=== PATIENT | male | born 1935 | race Caucasian/White ===

== ENCOUNTER 2019-08-02 14:01 | Emergency (ER) | payer MEDICARE, OTHER ==
--- NOTE | 2019-08-02 14:42 | EDM.PDOC ---
ED HPI GENERAL MEDICAL PROBLEM - General Chief Complaint: Fever Stated Complaint: FEVER AND BODY ACHES Time Seen by Provider: 08/02/19 14:41 - History of Present Illness INITIAL COMMENTS - FREE TEXT/NARRATIVE: 84-year-old male presents the emergency room not feeling well. This morning he did not feel well when he got up pretty much achy all over his temperature is been up a little bit to 99 4 but has not had a fever. He has not taken any Tylenol or ibuprofen yet. Patient denies any chest pain or breathing difficulties he does not have a cough. He does not have any abdominal pain no nausea vomiting constipation or diarrhea. He has no burning or frequency with urination. No upper airway congestion sore throat or sinus pressure. He just does not feel very well Generalized Pain Score (Numeric/FACES): 6 - Related Data Allergies Allergy/AdvReac Type Severity Reaction Status Date / Time No Known Allergies Allergy Verified 08/02/19 14:20 Home Meds: Home Meds Aspirin [Halfprin] 81 mg PO DAILY 10/03/14 [History] Cholecalciferol (Vitamin D3) [Vitamin D3] 1,000 unit PO DAILY 10/03/14 [History] Cyanocobalamin (Vitamin B12) [Vitamin B12] 1,000 mcg PO DAILY 10/03/14 [History] Furosemide [Lasix] 20 mg PO DAILY 10/03/14 [History] Losartan Potassium [Cozaar] 100 mg PO DAILY 10/03/14 [History] Pravastatin Sodium [Pravastatin (Pravachol)] 40 mg PO DAILY 10/03/14 [History] metFORMIN [Glucophage] 500 mg PO BIDMEALS 10/03/14 [History] traMADol [Ultram] 50 - 100 mg PO Q8H PRN 08/20/15 [History] Clindamycin HCl [Cleocin] 450 mg PO Q8H #18 cap 08/23/15 [Rx] Past Medical History HEENT History: Reports: Cataract, Hard of Hearing Cardiovascular History: Reports: High Cholesterol, Hypertension, Other (See Below) Other Cardiovascular History: "heart blockage" Respiratory History: Reports: Sleep Apnea Other Respiratory History: hx of pneumonia, cpap at night Gastrointestinal History: Reports: None Musculoskeletal History: Reports: Arthritis Endocrine/Metabolic History: Reports: Diabetes, Type II Dermatologic History: Reports: Other (See Below) Other Dermatologic History: chronic inflammation on LLE. - Infectious Disease History Infectious Disease History: Reports: Chicken Pox, Measles, Mumps - Past Surgical History GI Surgical History: Reports: Cholecystectomy Musculoskeletal Surgical History: Reports: Knee Replacement Social & Family History - Family History Cardiac: Reports: [place] Oncologic: Reports: Brain, Colon, Other (See Below) Other Oncologic Family History: Son had kidney cancer - Tobacco Use Smoking Status *Q: Never Smoker Second Hand Smoke Exposure: No - Caffeine Use Caffeine Use: Reports: Coffee - Recreational Drug Use Recreational Drug Use: No - Living Situation & Occupation Living situation: Reports: Occupation: Retired ED ROS GENERAL - Review of Systems Review Of Systems: See Below Constitutional: Reports: Other (Has had a subjective fever not a measured fever) HEENT: Reports: No Symptoms Respiratory: Reports: No Symptoms. Denies: Shortness of Breath, Cough Cardiovascular: Reports: No Symptoms. Denies: Chest Pain, Dyspnea on Exertion, Palpitations Endocrine: Reports: No Symptoms GI/Abdominal: Reports: No Symptoms. Denies: Abdominal Pain, Constipation, Diarrhea, Nausea, Vomiting : Reports: No Symptoms Musculoskeletal: Reports: Other (He is achy all over) Skin: Reports: No Symptoms Neurological: Reports: No Symptoms. Denies: Confusion, Dizziness, Headache Psychiatric: Reports: No Symptoms Hematologic/Lymphatic: Reports: No Symptoms ED EXAM, GENERAL - Physical Exam Exam: See Below Exam Limited By: No Limitations General Appearance: Alert, No Apparent Distress Eye Exam: Bilateral Eye: Normal Inspection Ears: Normal External Exam, Normal Canal, Hearing Grossly Normal, Normal TMs Nose: Normal Inspection, Normal Mucosa, No Blood Throat/Mouth: Normal Inspection, Normal Lips, Normal Gums, Normal Oropharynx, Normal Voice, No Airway Compromise, Other (Dentures on the top original teeth on the bottom no acute changes) Head: Atraumatic, Normocephalic Neck: Normal Inspection, Supple, Non-Tender, Full Range of Motion. No: Lymphadenopathy (L), Lymphadenopathy (R) Respiratory/Chest: No Respiratory Distress, Lungs Clear, Normal Breath Sounds Cardiovascular: Normal Peripheral Pulses, Regular Rate, Rhythm, No Edema GI/Abdominal: Normal Bowel Sounds, Soft, Non-Tender Rectal (Males) Exam: Normal Exam, Normal Rectal Tone, Prostate Normal Back Exam: Normal Inspection, Full Range of Motion. No: CVA Tenderness (L), CVA Tenderness (R) Extremities: Normal Inspection, Normal Range of Motion, Non-Tender Neurological: Alert, Oriented, Normal Cognition Psychiatric: Normal Affect, Normal Mood Course - Vital Signs Last Recorded V/S: Last Vital Signs Temp 36.9 C 08/02/19 17:05 Pulse 84 08/02/19 17:38 Resp 20 08/02/19 17:05 BP 112/65 08/02/19 17:38 Pulse Ox 95 08/02/19 17:38 - Orders/Labs/Meds Orders: Active Orders 24 hr Category Date Time Status EKG Documentation Completion [RC] STAT Care 08/02/19 17:16 Inactive Chest 1V Frontal [CR] Stat Exams 08/02/19 15:38 Taken CORONAVIRUS COVID-19 PCR PHL Routine Lab 08/02/19 17:10 Received Labs: Laboratory Tests 08/02/19 08/02/19 08/02/19 Range/Units 15:49 15:49 15:49 WBC 10.20 H (4.23-9.07) K/mm3 RBC 4.88 (4.63-6.08) M/mm3 Hgb 14.8 (13.7-17.5) gm/dl Hct 45.4 (40.1-51.0) % MCV 93.0 H (79.0-92.2) fl MCH 30.3 (25.7-32.2) pg MCHC 32.6 (32.2-35.5) g/dl RDW Std Deviation 44.4 H (35.1-43.9) fL Plt Count 315 (163-337) K/mm3 MPV 8.7 L (9.4-12.3) fl Neutrophils % (Manual) 88 H (40-60) % Band Neutrophils % 1 (0-10) % Lymphocytes % (Manual) 3 L (20-40) % Atypical Lymphs % 0 % Monocytes % (Manual) 8 (2-10) % Eosinophils % (Manual) 0 L (0.8-7.0) % Basophils % (Manual) 0 L (0.2-1.2) Platelet Estimate Adequate RBC Morph Comment Normal Sodium 137 (136-145) mEq/L Potassium 4.1 (3.5-5.1) mEq/L Chloride 101 (98-107) mEq/L Carbon Dioxide 28 (21-32) mEq/L Anion Gap 12.1 (5-15) BUN 10 (7-18) mg/dL Creatinine 1.2 (0.7-1.3) mg/dL Est Cr Clr Drug Dosing 44.37 mL/min Estimated GFR (MDRD) 58 (>60) mL/min BUN/Creatinine Ratio 8.3 L (14-18) Glucose 113 (83-115) mg/dL Calcium 8.7 (8.5-10.1) mg/dL Ferritin 107 (26-388) ng/ml Total Bilirubin 1.5 H (0.2-1.0) mg/dL AST 23 (15-37) U/L ALT 26 (16-63) U/L Alkaline Phosphatase 61 (46-116) U/L C-Reactive Protein 1.5 H* (<1.0) mg/dL Total Protein 7.1 (6.4-8.2) g/dl Albumin 3.4 (3.4-5.0) g/dl Globulin 3.7 gm/dL Albumin/Globulin Ratio 0.9 L (1-2) - Re-Assessments/Exams Free Text/Narrative Re-Assessment/Exam: 08/02/19 17:53 X-ray is unrevealing laboratory results are nonspecific he is got a minimally elevated C-reactive protein at 1.5 his white count is at the high end of normal with a relative lymphopenia. Departure - Departure Time of Disposition: 17:54 Disposition: Home, Self-Care 01 Clinical Impression: Viral illness - Discharge Information Referrals: Chino Ernandez MD [Primary Care Provider] - Forms: ED Department Discharge Additional Instructions: Return to the emergency room with any questions problems or worsening symptoms. Tylenol and your tramadol as needed for discomfort. Follow-up in the clinic if needed. Be sure to drink plenty of fluids. Sepsis Event Note - Evaluation Sepsis Screening Result: No Definite Risk - Focused Exam Vital Signs: Vital Signs Temp Pulse Resp BP Pulse Ox 08/02/19 17:38 84 112/65 95 08/02/19 17:10 84 107/77 95 08/02/19 17:05 36.9 C 82 20 143/120 H 96 08/02/19 15:43 85 143/86 H 94 L 08/02/19 14:18 36.9 C 87 16 147/82 H 93 L Date Exam was Performed: 08/02/19 Time Exam was Performed: 17:53 - My Orders Last 24 Hours: My Active Orders 08/02/19 15:38 Chest 1V Frontal [CR] Stat 08/02/19 17:10 CORONAVIRUS COVID-19 PCR PHL Routine 08/02/19 17:16 EKG Documentation Completion [RC] STAT - Assessment/Plan Last 24 Hours: My Active Orders 08/02/19 15:38 Chest 1V Frontal [CR] Stat 08/02/19 17:10 CORONAVIRUS COVID-19 PCR PHL Routine 08/02/19 17:16 EKG Documentation Completion [RC] STAT
[2019-08-02 17:11] VITALS: PULSE 84
[2019-08-02 17:39] VITALS: BP 112/65
--- NOTE | 2019-08-04 07:00 | CR ---
Chest: Portable view of the chest was obtained. Comparison: Prior chest x-ray of 08/20/15. Heart size and mediastinum are normal. Lungs are clear with no acute parenchymal change. Bony structures are grossly intact. Impression: 1. Nothing acute is appreciated on portable chest x-ray. Diagnostic code #1 This report was dictated in MDT
== END 2019-08-02 18:09 | disposition home or self-care (01) ==
LOC: JD.ED 14:01
DX: B34.9 Viral infection, unspecified (principal); M19.90 Unspecified osteoarthritis, unspecified site; E11.9 Type 2 diabetes mellitus without complications; E78.00 Pure hypercholesterolemia, unspecified; I10 Essential (primary) hypertension; Z79.84 Long term (current) use of oral hypoglycemic drugs; Z79.82 Long term (current) use of aspirin; Z79.899 Other long term (current) drug therapy
CPT/HCPCS: 36415; 71045; 80053; 82728; 85007; 85027; 86140; 99283; U0002

== ENCOUNTER 2020-08-01 19:22 | Emergency (ER) | payer MEDICARE, OTHER ==
[2020-08-01] MEDS ORDERED: HYDROmorphone 0.5 MG/0.5 ML Syringe IVPUSH ONE ×2 (19:44→20:24)
[2020-08-01] MEDS ORDERED: Ondansetron 4 MG/2 ML SDV IVPUSH ONE (19:45)
[2020-08-01 20:11] VITALS: BP 136/113; PULSE 94
--- NOTE | 2020-08-01 20:19 | EDM.PDOC ---
ED HPI GENERAL MEDICAL PROBLEM - General Chief Complaint: Lower Extremity Injury/Pain Stated Complaint: RIGHT SIDE HIP PAIN POSSIBLE BROKEN DID N OT FALL? Time Seen by Provider: 08/01/20 19:39 Source of Information: Reports: Patient, Family, RN Notes Reviewed History Limitations: Reports: No Limitations - History of Present Illness INITIAL COMMENTS - FREE TEXT/NARRATIVE: Patient is an 85-year-old male presenting to the emergency department with complaints of right hip pain. He reports that he was getting into the bathtub when he felt a pop. Since that time he has been experiencing severe pain to the hip. He took a tramadol and Tylenol about an hour and a half prior to coming to ER with no relief. He reports approximately 2 weeks ago, he fell onto his right side. He denied any pain to his right hip until this evening. Denies any history of chronic hip pain and has never had surgeries on this hip. He was able to stand and pivot to the cot, however it was quite uncomfortable. Right Hip Pain Score (Numeric/FACES): 8 - Related Data Allergies Allergy/AdvReac Type Severity Reaction Status Date / Time No Known Allergies Allergy Verified 08/01/20 19:30 Home Meds: Home Meds Aspirin [Halfprin] 81 mg PO DAILY 10/03/14 [History] Cholecalciferol (Vitamin D3) [Vitamin D3] 1,000 unit PO DAILY 10/03/14 [History] Cyanocobalamin (Vitamin B12) [Vitamin B12] 1,000 mcg PO DAILY 10/03/14 [History] Furosemide [Lasix] 20 mg PO DAILY 10/03/14 [History] Losartan Potassium [Cozaar] 100 mg PO DAILY 10/03/14 [History] Pravastatin Sodium [Pravastatin (Pravachol)] 40 mg PO DAILY 10/03/14 [History] metFORMIN [Glucophage] 500 mg PO BIDMEALS 10/03/14 [History] traMADol [Ultram] 50 - 100 mg PO Q8H PRN 08/20/15 [History] Clindamycin HCl [Cleocin] 450 mg PO Q8H #18 cap 08/23/15 [Rx] Past Medical History HEENT History: Reports: Cataract, Hard of Hearing Cardiovascular History: Reports: High Cholesterol, Hypertension, Other (See Below) Other Cardiovascular History: "heart blockage" Respiratory History: Reports: Sleep Apnea Other Respiratory History: hx of pneumonia, cpap at night Gastrointestinal History: Reports: None Musculoskeletal History: Reports: Arthritis Endocrine/Metabolic History: Reports: Diabetes, Type II Dermatologic History: Reports: Other (See Below) Other Dermatologic History: chronic inflammation on LLE. - Infectious Disease History Infectious Disease History: Reports: Chicken Pox, Measles, Mumps - Past Surgical History HEENT Surgical History: Reports: Cataract Surgery Cardiovascular Surgical History: Reports: None Respiratory Surgical History: Reports: None GI Surgical History: Reports: Cholecystectomy Endocrine Surgical History: Reports: None Musculoskeletal Surgical History: Reports: Knee Replacement Other Musculoskeletal Surgeries/Procedures:: left knee 2010 Dermatological Surgical History: Reports: None Social & Family History - Family History Cardiac: Reports: [place] Oncologic: Reports: Brain, Colon, Other (See Below) Other Oncologic Family History: Son had kidney cancer - Tobacco Use Tobacco Use Status *Q: Unknown Ever Used Tobacco - Caffeine Use Caffeine Use: Reports: Coffee - Living Situation & Occupation Living situation: Reports: Occupation: Retired Review of Systems - Review of Systems Review Of Systems: Comprehensive ROS is negative, except as noted in HPI. ED EXAM, GENERAL - Physical Exam Exam: See Below Exam Limited By: No Limitations General Appearance: Alert, WD/WN, No Apparent Distress Respiratory/Chest: No Respiratory Distress, Lungs Clear, Normal Breath Sounds, No Accessory Muscle Use, Chest Non-Tender Cardiovascular: Normal Peripheral Pulses, Regular Rate, Rhythm, No Edema, No Gallop, No JVD, No Murmur, No Rub Extremities: Normal Inspection, Normal Range of Motion, Non-Tender, No Pedal Edema, Normal Capillary Refill, Other (tenderness to palpation in the right groin and posterior hip.) Course - Vital Signs Last Recorded V/S: Last Vital Signs Temp 97.8 F 08/01/20 19:30 Pulse 94 08/01/20 19:30 Resp 17 08/01/20 19:30 BP 136/113 H 08/01/20 19:30 Pulse Ox 99 08/01/20 19:30 - Orders/Labs/Meds Labs: Laboratory Tests 08/01/20 08/01/20 Range/Units 19:45 19:45 WBC 9.35 H (4.23-9.07) K/mm3 RBC 5.11 (4.63-6.08) M/mm3 Hgb 15.6 (13.7-17.5) gm/dl Hct 46.7 (40.1-51.0) % MCV 91.4 D (79.0-92.2) fl MCH 30.5 (25.7-32.2) pg MCHC 33.4 (32.2-35.5) g/dl RDW Std Deviation 45.3 H (35.1-43.9) fL Plt Count 444 H (163-337) K/mm3 MPV 8.9 L (9.4-12.3) fl Neut % (Auto) 72.4 H (34.0-67.9) % Lymph % (Auto) 18.3 L (21.8-53.1) % [place] % (Auto) 8.2 (5.3-12.2) % Eos % (Auto) 0.5 L (0.8-7.0) Baso % (Auto) 0.4 (0.1-1.2) % Neut # (Auto) 6.76 H (1.78-5.38) K/mm3 Lymph # (Auto) 1.71 (1.32-3.57) K/mm3 [place] # (Auto) 0.77 (0.30-0.82) K/mm3 Eos # (Auto) 0.05 (0.04-0.54) K/mm3 Baso # (Auto) 0.04 (0.01-0.08) K/mm3 Sodium 138 (136-145) mEq/L Potassium 3.6 (3.5-5.1) mEq/L Chloride 100 (98-107) mEq/L Carbon Dioxide 20 L (21-32) mEq/L Anion Gap 21.6 H (5-15) BUN 12 (7-18) mg/dL Creatinine 1.4 H (0.7-1.3) mg/dL Est Cr Clr Drug Dosing 37.38 mL/min Estimated GFR (MDRD) 48 (>60) mL/min BUN/Creatinine Ratio 8.6 L (14-18) Glucose 144 H (70-99) mg/dL Calcium 9.4 (8.5-10.1) mg/dL Total Bilirubin 1.2 H (0.2-1.0) mg/dL AST 27 (15-37) U/L ALT 25 (16-63) U/L Alkaline Phosphatase 71 (46-116) U/L Total Protein 8.0 (6.4-8.2) g/dl Albumin 3.9 (3.4-5.0) g/dl Globulin 4.1 gm/dL Albumin/Globulin Ratio 1.0 (1-2) Meds: Medications Discontinued Medications Generic Name Dose Route Start Last Admin Trade Name Evan PRN Reason Stop Dose Admin Hydromorphone HCl 0.5 mg 08/01/20 19:44 08/01/20 19:54 Hydromorphone 0.5 Mg/0.5 Ml Syringe IVPUSH 08/01/20 19:45 0.5 mg ONETIME ONE Administration Hydromorphone HCl 0.5 mg 08/01/20 20:24 08/01/20 20:31 Hydromorphone 0.5 Mg/0.5 Ml Syringe IVPUSH 08/01/20 20:25 Not Given ONETIME ONE Ondansetron HCl 4 mg 08/01/20 19:45 08/01/20 19:54 Ondansetron 4 Mg/2 Ml Sdv IVPUSH 08/01/20 19:46 4 mg ONETIME ONE Administration - Re-Assessments/Exams Free Text/Narrative Re-Assessment/Exam: 08/01/20 20:39 X-ray of the right hip shows some irregularities of the greater trochanter as well as the femoral neck. Given the amount of discomfort the patient was having, I have ordered a CT scan of the hip to be completed. He is fairly comfortable after the Dilaudid given. 08/01/20 22:03 CT scan of the right hip impression as follows: 1. No acute findings. 2. Severe canal stenosis L4-L5. 3. Moderate prostate enlargement, nonspecific. 4. Fatty right inguinal hernia without evidence of bowel herniation or strangulation. Patient denies pain at this time. We will provide him with a walker and have him get up and move to see how he does. 08/01/20 22:08 Patient was able to get up and walk with little difficulty. States his hip feels a little stiff but it was not overly plain painful. Discussed that he is likely suffering from a muscle strain with spasm which released after he relaxed. We will send him home with a walker. I will also send a prescription for [facility] to be used as needed as once he wakes up tomorrow, the hip may be stiff and painful. Discussed if symptoms not improve over the next 2 days, he should follow-up with his primary care or return to ER as needed. Discharge instructions as documented. Departure - Departure Time of Disposition: 22:09 Disposition: Home, Self-Care 01 Condition: Good Clinical Impression: Strain of right hip Qualifiers: Encounter type: initial encounter Qualified Code(s): S76.011A - Strain of muscle, fascia and tendon of right hip, initial encounter - Discharge Information *PRESCRIPTION DRUG MONITORING PROGRAM REVIEWED*: Yes *COPY OF PRESCRIPTION DRUG MONITORING REPORT IN PATIENT JEFF: No Instructions: Hip Pain, Muscle Strain Referrals: Chino Ernandez MD [Primary Care Provider] - Forms: ED Department Discharge Additional Instructions: You were seen in the emergency department today for acute onset of right hip pain. Work-up included hip x-ray and hip CT. Results of your work-up showed no evidence of fracture. There is some chronic arthritic changes. You have been provided with a walker. Recommend that you use this for the next few days until the discomfort resolves and you are able to walk safely without it. You have a pruritus prescription for hydrocodone with Tylenol as needed for pain. The only pharmacy open tomorrow is [facility] in [place] and they open from 1 PM to 3 PM. You may fill these as needed. If you continue to have discomfort that is not improving over the course of the next few days, recommend follow-up with your primary care provider. Return to ER as needed. Sepsis Event Note (ED) - Evaluation Sepsis Screening Result: No Definite Risk
--- NOTE | 2020-08-02 09:08 | CR ---
Pelvis and right hip: AP view of the pelvis was obtained as well as AP and frog-leg lateral views of the right hip. Comparison: No prior pelvis or right hip exam is available. Joint space narrowing is seen within the superior right hip. Osteophytes are noted off the femoral head. Slight degenerative sclerosis is noted within the sacroiliac joints. Osteopenia is noted. Mild degenerative change is seen within the spine. Impression: 1. Joint space narrowing within the right hip with mild osteophytes. 2. Mild degenerative sclerosis is seen within the sacroiliac joints. 3. Nothing acute is seen. Diagnostic code #2
--- NOTE | 2020-08-03 08:36 | CT ---
CT right hip Technique: Multiple axial sections were obtained through the right hip. Reconstructed coronal and sagittal images were also obtained. No intravenous or oral contrast was given. Comparison: Pelvis and right hip radiograph performed earlier on the same day (08/01/20, 8:15 PM). There is joint space narrowing within the right hip. Osteophytes are seen off the femoral head. Bony structures are osteopenic. Mild degenerative sclerosis is noted within the sacroiliac joints. Degenerative change is noted within the lumbar spine which shows vacuum phenomena within the L4-5 and L5-S1 apophyseal joints. Posterior disc space narrowing is noted at L4-5 and L5-S1. Incidental bone island is noted within the femoral head. On the axial views there is disc bulging at L4-5 with thickening of the ligamentum flavum suspicious for moderate central canal stenosis. Fat-containing right inguinal hernia is noted. Prostate gland shows age-related enlargement. No acute fracture or dislocation is seen. Impression: 1. Degenerative change within the right hip as well as lumbar spine. 2. Moderate central canal stenosis at L4-5. 3. Other findings as noted above. 4. Nothing acute is appreciated. Diagnostic code #3 I agree with preliminary report from [facility], finalized on 08/01/20, 10:56 PM CDT, code 1 MTDD
== END 2020-08-01 22:28 | disposition home or self-care (01) ==
LOC: JD.ED 19:22
DX: S76.011A Strain of muscle, fascia and tendon of right hip, initial encounter (principal); E78.00 Pure hypercholesterolemia, unspecified; I10 Essential (primary) hypertension; E11.9 Type 2 diabetes mellitus without complications; Z79.82 Long term (current) use of aspirin; Z79.84 Long term (current) use of oral hypoglycemic drugs; W18.39XA Other fall on same level, initial encounter; Y92.002 Bathroom of unspecified non-institutional (private) residence as the place of occurrence of the external cause
CPT/HCPCS: 36415; 73502; 73700; 80053; 85025; 96374; 96375; 99284; J1170; J2405; 99283

== ENCOUNTER 2022-03-20 11:05 | Emergency (ER) | payer MEDICARE, MEDICAID ==
[2022-03-20] MEDS ORDERED: Sodium Chloride 0.9% 1,000 ML IV ONE (11:13)
[2022-03-20] MEDS ORDERED: Promethazine 25 MG in Sodium Chloride 0.9% 50 ML IV ONE (11:13)
[2022-03-20 11:14] VITALS: BP 155/78; PULSE 91
[2022-03-20 12:20] LABS: CORONAVIRUS COVID-19 NAA NEGATIVE (NEGATIVE)
[2022-03-20 12:21] LABS: ESTIMATED GFR 66 mL/min (>60)
== END 2022-03-20 14:59 | disposition home or self-care (01) ==
LOC: JD.ED 11:05
DX: D72.829 Elevated white blood cell count, unspecified (principal); R11.2 Nausea with vomiting, unspecified; R19.7 Diarrhea, unspecified; E78.00 Pure hypercholesterolemia, unspecified; I10 Essential (primary) hypertension; E11.9 Type 2 diabetes mellitus without complications; Z79.82 Long term (current) use of aspirin; Z79.899 Other long term (current) drug therapy; Z79.84 Long term (current) use of oral hypoglycemic drugs; Z90.49 Acquired absence of other specified parts of digestive tract; Z20.822 Contact with and (suspected) exposure to COVID-19
CPT/HCPCS: 0241U; 36415; 71045; 80053; 81001; 85025; 86140; 87040; 96365; 96366; 99284; J2550; J7030

== ENCOUNTER 2022-03-21 09:07 | Inpatient (IN) | payer MEDICARE, MEDICAID ==
[2022-03-21] MEDS: Sodium Chloride 0.9% 10 ML Syringe FLUSH PRN ×2 (09:42→10:21)
[2022-03-21] MEDS ORDERED: Sodium Chloride 0.9% 10 ML Syringe FLUSH ONE (09:44)
[2022-03-21] MEDS ORDERED: Iopamidol 612 MG/ML 100 ML Bottle IVPUSH ONE (09:44)
[2022-03-21] MEDS ORDERED: Iopamidol 612 MG/ML 50 ML SDV IVPUSH ONE (09:44)
[2022-03-21] MEDS ORDERED: Sodium Chloride 0.9% 1,000 ML IV ONE (10:57)
[2022-03-21] MEDS ORDERED: cefTRIAXone 2 GM in Sodium Chloride 0.9% 100 ML IV ONE (10:58)
[2022-03-21] MEDS ORDERED: Vancomycin 2 GM in Sodium Chloride 0.9% 500 ML IV ONE (10:59)
[2022-03-21] MEDS ORDERED: Vancomycin 1 GM SDV ONE (11:14)
[2022-03-21] MEDS ORDERED: traMADol 50 MG Tab PO PRN (15:53)
[2022-03-21] MEDS: Acetaminophen 325 MG Tab PO PRN ×2 (16:20→22:14)
[2022-03-22] MEDS: Acetaminophen 325 MG Tab PO PRN ×3 (04:28→19:23)
[2022-03-22 07:43] LABS: HEMOGLOBIN A1C 6.3 %
[2022-03-22] MEDS: Pravastatin 20 MG Tab PO SCH (09:29)
[2022-03-22] MEDS: Aspirin 81 MG Tab.EC PO SCH (09:29)
[2022-03-22] MEDS: Furosemide 20 MG Tab PO SCH (09:29)
[2022-03-22] MEDS: Losartan 100 MG Tab PO SCH (09:29)
[2022-03-22] MEDS: cefTRIAXone 1 GM in Sodium Chloride 0.9% 100 ML IV SCH (10:08)
[2022-03-22] MEDS ORDERED: cefTRIAXone 500 MG Vial IVPUSH SCH (11:00)
[2022-03-22 14:57] LABS: CORONAVIRUS COVID-19 NAA NEGATIVE (NEGATIVE)
[2022-03-22] MEDS: Enoxaparin 30 MG/0.3 ML Syringe SUBCUT SCH (20:41)
[2022-03-23] MEDS: Losartan 100 MG Tab PO SCH (09:02)
[2022-03-23] MEDS: Aspirin 81 MG Tab.EC PO SCH (09:02)
[2022-03-23] MEDS: Pravastatin 20 MG Tab PO SCH (09:02)
[2022-03-23] MEDS: Furosemide 20 MG Tab PO SCH (09:02)
[2022-03-23] MEDS: Acetaminophen 325 MG Tab PO PRN ×3 (09:03→19:57)
[2022-03-23] MEDS: cefTRIAXone 1 GM in Sodium Chloride 0.9% 100 ML IV SCH (10:12)
[2022-03-23] MEDS ORDERED: VANCOmycin 1.25 GM/250 ML 1.25 GM in Premix Bag 1 BAG IV SCH (12:30)
[2022-03-23] MEDS: Potassium Chloride 20 MEQ Tab.ER PO SCH (12:43)
[2022-03-23] MEDS: Enoxaparin 30 MG/0.3 ML Syringe SUBCUT SCH (20:00)
[2022-03-24] MEDS: Aspirin 81 MG Tab.EC PO SCH (08:41)
[2022-03-24] MEDS: Furosemide 20 MG Tab PO SCH (08:41)
[2022-03-24] MEDS: Losartan 100 MG Tab PO SCH (08:41)
[2022-03-24] MEDS: Pravastatin 20 MG Tab PO SCH (08:41)
[2022-03-24] MEDS: Potassium Chloride 20 MEQ Tab.ER PO SCH (08:41)
[2022-03-24 08:42] VITALS: BP 107/59
[2022-03-24] MEDS: Acetaminophen 325 MG Tab PO PRN (08:44)
[2022-03-24 09:21] VITALS: PULSE 89
[2022-03-24] MEDS: cefTRIAXone 1 GM in Sodium Chloride 0.9% 100 ML IV SCH (11:30)
[2022-03-27] MEDS ORDERED: Losartan 100 MG Tab PO SCH (09:00)
== END 2022-03-24 12:48 | disposition home or self-care (01) | DRG 872 ==
LOC: JD.ED 09:07 → JD.MS 14:42
PROVIDERS: ADMIT Pediatrics; ATTEND Internal Medicine
DX: A41.89 Other specified sepsis (principal); L03.115 Cellulitis of right lower limb; I50.32 Chronic diastolic (congestive) heart failure; E11.65 Type 2 diabetes mellitus with hyperglycemia; I25.10 Atherosclerotic heart disease of native coronary artery without angina pectoris; R19.7 Diarrhea, unspecified; B34.9 Viral infection, unspecified; A41.9 Sepsis, unspecified organism; H91.90 Unspecified hearing loss, unspecified ear; I11.0 Hypertensive heart disease with heart failure; R32 Unspecified urinary incontinence; F03.90 Unspecified dementia, unspecified severity, without behavioral disturbance, psychotic disturbance, mood disturbance, and anxiety; Z96.652 Presence of left artificial knee joint; Z86.718 Personal history of other venous thrombosis and embolism; E11.9 Type 2 diabetes mellitus without complications; I10 Essential (primary) hypertension; Z79.01 Long term (current) use of anticoagulants; E78.00 Pure hypercholesterolemia, unspecified; Z87.01 Personal history of pneumonia (recurrent); Z90.49 Acquired absence of other specified parts of digestive tract; Z79.82 Long term (current) use of aspirin; Z79.84 Long term (current) use of oral hypoglycemic drugs; Z79.899 Other long term (current) drug therapy
CPT/HCPCS: 0241U; 36415; 70450; 71046; 71260; 74177; 80053; 80202; 81001; 82150; 83036; 83605; 83690; 83735; 83880; 84443; 84484; 85025; 85379; 85652; 86140; 87086; 87641; 93005; 93970; 94760; 94762; 96361; 96365; 96366; 96367; 97116; 97162; 97165; 97166; 97530; 99285; A9270-GY; J0696; J1650; J3370; J3490; J7030; J7040; J7050; Q9967

== ENCOUNTER 2024-03-25 08:08 | Inpatient (IN) | payer MEDICARE, BC ==
[2024-03-25] MEDS ORDERED: Sodium Chloride 0.9% 10 ML Syringe FLUSH PRN (08:12)
[2024-03-25 08:40] LABS: BASOPHILS ABSOLUTE AUTO 0.1 K/mm3 (0.0-0.2); BASOPHILS PERCENT AUTO 0.6 % (0.0-1.0); EOSINOPHILS ABSOLUTE AUTO 0.3 K/mm3 (0.0-0.4); EOSINOPHILS PERCENT AUTO 2.2 % (0.0-6.0); HEMOGLOBIN 14.9 gm/dl (14.0-18.0); IMMATURE GRAN PERCENT AUTO 0.9 % (0.0-0.4); LYMPHOCYTES PERCENT AUTO 26.1 % (24.0-44.0); MEAN CORPUSCULAR HEMOGLOBIN 30.3 pg (28.0-32.0); MEAN CORPUSCULAR HGB CONC 32.4 g/dl (32.0-36.0); MEAN CORPUSCULAR VOLUME 93.5 fl (83.0-99.0); MEAN PLATELET VOLUME 9.1 fl (9.4-12.4); MONOCYTES ABSOLUTE AUTO 0.7 K/mm3 (0.0-0.8); NEUTROPHILS ABSOLUTE AUTO 7.3 K/mm3 (1.8-7.7); NEUTROPHILS PERCENT AUTO 64.2 % (41.0-71.0); PLATELET COUNT,PLT 324 K/mm3 (150-400); RED BLOOD CELL COUNT 4.92 M/mm3 (4.52-5.90); WHITE BLOOD CELL COUNT,WBC 11.42 K/mm3 (3.9-11.3)
[2024-03-25 08:50] LABS: BASE EXCESS VENOUS -6.9 (-4.0-2.0); BICARBONATE,VENOUS 17.5 meq/L (22-26); O2 SATURATION VENOUS 89.7; PCO2 VENOUS 33.7 mmHg (41-51); PH,VENOUS 7.34 (7.30-7.40)
[2024-03-25 09:04] LABS: INR 1.05; PROTHROMBIN TIME 11.1 SECONDS (9.7-12.0)
[2024-03-25 09:08] LABS: A/G RATIO 0.9 (1-2); ALANINE AMINOTRANSFERASE,ALT 34 U/L (16-63); ALBUMIN 3.5 g/dl (3.4-5.0); ALKALINE PHOSPHATASE 87 U/L (46-116); ANION GAP 17.5 (5-15); ASPARTATE AMNIOTRANSFERASE,AST 32 U/L (15-37); BILIRUBIN TOTAL 0.7 mg/dL (0.2-1.0); BLOOD UREA NITROGEN,BUN 14 mg/dL (7-18); BUN/CREATININE RATIO 9.3 (14-18); CALCIUM 9.2 mg/dL (8.5-10.1); CARBON DIOXIDE,CO2 22 mEq/L (21-32); CHLORIDE,CL 103 mEq/L (98-107); CREATINE KINASE,CK 88 U/L (39-308); CREATININE 1.5 mg/dL (0.7-1.3); ESTIMATED GFR 45 mL/min (>60); GLUCOSE RANDOM 169 mg/dL (70-99); LIPASE 16 U/L (16-77); POTASSIUM,K 3.5 mEq/L (3.5-5.1); PROTEIN TOTAL,TP 7.6 g/dl (6.4-8.2); SODIUM,NA 139 mEq/L (136-145)
[2024-03-25 09:37] LABS: LACTIC ACID 3.8 mmol/L (0.4-2.0)
[2024-03-25] MEDS ORDERED: Ondansetron 4 MG/2 ML SDV IV PRN (12:47)
[2024-03-25] MEDS ORDERED: Acetaminophen 325 MG Tab PO PRN (12:47)
[2024-03-25] MEDS ORDERED: oxyCODONE 5 MG Tab PO PRN (12:47)
[2024-03-25] MEDS ORDERED: HYDROmorphone 0.5 MG/0.5 ML Syringe IVPUSH PRN (12:47)
[2024-03-25] MEDS: Lidocaine 1% 10 ML MDV INJECT ONE (13:03)
[2024-03-25] MEDS: Sodium Chloride 0.9% 1,000 ML IV ONE (13:03)
[2024-03-25] MEDS: Heparin Sodium 5,000 Units/ML Vial SUBCUT SCH (15:00)
[2024-03-25] MEDS: Sodium Chloride 0.9% 1,000 ML IV SCH (15:00)
[2024-03-25 15:32] LABS: APPEARANCE,URINE CLEAR (Clear); BILIRUBIN,URINE NEGATIVE (Negative); COLOR,URINE YELLOW (Yellow); GLUCOSE,URINE NEGATIVE (Negative); KETONES,URINE 1+ (Negative); LEUKOCYTE ESTERASE,URINE NEGATIVE (Negative); NITRITE,URINE NEGATIVE (Negative); OCCULT BLOOD,URINE NEGATIVE (Negative); PROTEIN,URINE NEGATIVE (Negative); UROBILINOGEN,URINE 0.2 (0.2-1.0)
[2024-03-25] MEDS: Insulin Lispro 100 Unit/ML 3 ML KwikPen SUBCUT SCH (16:37)
[2024-03-25 18:43] LABS: ANION GAP 13.9 (5-15); BUN/CREATININE RATIO 8.6 (14-18); CALCIUM 8.5 mg/dL (8.5-10.1); CREATININE 1.4 mg/dL (0.7-1.3); EST CRCL DRUG DOSING (CG) 34.75 mL/min; POTASSIUM,K 3.9 mEq/L (3.5-5.1)
[2024-03-25] MEDS: hydrOXYzine HCl 25 MG Tab PO PRN (18:46)
[2024-03-25] MEDS: QUEtiapine 25 MG Tab PO PRN (20:06)
[2024-03-26 04:35] LABS: BASOPHILS ABSOLUTE AUTO 0.1 K/mm3 (0.0-0.2); BASOPHILS PERCENT AUTO 0.7 % (0.0-1.0); EOSINOPHILS ABSOLUTE AUTO 0.2 K/mm3 (0.0-0.4); EOSINOPHILS PERCENT AUTO 2.2 % (0.0-6.0); HEMATOCRIT 40.2 % (42.0-52.0); HEMOGLOBIN 13.2 gm/dl (14.0-18.0); IMMATURE GRAN ABSOLUTE AUTO 0.05 K/mm3 (0.00-0.05); IMMATURE GRAN PERCENT AUTO 0.7 % (0.0-0.4); LYMPHOCYTES PERCENT AUTO 26.6 % (24.0-44.0); MEAN CORPUSCULAR HEMOGLOBIN 30.4 pg (28.0-32.0); MEAN CORPUSCULAR HGB CONC 32.8 g/dl (32.0-36.0); MEAN CORPUSCULAR VOLUME 92.6 fl (83.0-99.0); MEAN PLATELET VOLUME 8.9 fl (9.4-12.4); MONOCYTES ABSOLUTE AUTO 0.7 K/mm3 (0.0-0.8); MONOCYTES PERCENT AUTO 9.6 % (0.0-8.0); NEUTROPHILS ABSOLUTE AUTO 4.6 K/mm3 (1.8-7.7); NEUTROPHILS PERCENT AUTO 60.2 % (41.0-71.0); PLATELET COUNT,PLT 246 K/mm3 (150-400); RED BLOOD CELL COUNT 4.34 M/mm3 (4.52-5.90); WHITE BLOOD CELL COUNT,WBC 7.58 K/mm3 (3.9-11.3)
[2024-03-26 05:09] LABS: A/G RATIO 0.8 (1-2); ALBUMIN 2.9 g/dl (3.4-5.0); ANION GAP 11.6 (5-15); BILIRUBIN TOTAL 0.6 mg/dL (0.2-1.0); BUN/CREATININE RATIO 8.3 (14-18); CALCIUM 8.2 mg/dL (8.5-10.1); CREATININE 1.2 mg/dL (0.7-1.3); EST CRCL DRUG DOSING (CG) 40.55 mL/min; MAGNESIUM 1.7 mg/dL (1.8-2.4); POTASSIUM,K 3.6 mEq/L (3.5-5.1); PROTEIN TOTAL,TP 6.4 g/dl (6.4-8.2)
[2024-03-26] MEDS: Lidocaine 2% with EPINEPHrine 1:100,000 20 ML MDV INJECT ONE (05:12)
[2024-03-26] MEDS: Memantine 10 MG Tab PO SCH (08:26)
[2024-03-26] MEDS: risperiDONE 0.25 MG Tab PO SCH (08:26)
[2024-03-26] MEDS: Venlafaxine 75 MG Cap.ER PO SCH (08:26)
[2024-03-26] MEDS: Magnesium Sulfate/Water Premix 2 GM in Premix Bag 1 BAG IV ONE (08:27)
[2024-03-26] MEDS: Potassium Chloride 20 MEQ Tab.ER PO ONE (11:02)
[2024-03-26] MEDS: Docusate Sodium 100 MG Cap PO PRN (13:01)
[2024-03-27 04:30] LABS: BASOPHILS ABSOLUTE AUTO 0.1 K/mm3 (0.0-0.2); BASOPHILS PERCENT AUTO 0.7 % (0.0-1.0); EOSINOPHILS ABSOLUTE AUTO 0.2 K/mm3 (0.0-0.4); EOSINOPHILS PERCENT AUTO 2.8 % (0.0-6.0); HEMATOCRIT 41.5 % (42.0-52.0); HEMOGLOBIN 13.6 gm/dl (14.0-18.0); IMMATURE GRAN ABSOLUTE AUTO 0.04 K/mm3 (0.00-0.05); IMMATURE GRAN PERCENT AUTO 0.5 % (0.0-0.4); LYMPHOCYTES ABSOLUTE AUTO 1.9 K/mm3 (1.0-4.8); LYMPHOCYTES PERCENT AUTO 21.7 % (24.0-44.0); MEAN CORPUSCULAR HEMOGLOBIN 30.1 pg (28.0-32.0); MEAN CORPUSCULAR HGB CONC 32.8 g/dl (32.0-36.0); MEAN CORPUSCULAR VOLUME 91.8 fl (83.0-99.0); MEAN PLATELET VOLUME 8.9 fl (9.4-12.4); MONOCYTES ABSOLUTE AUTO 0.8 K/mm3 (0.0-0.8); MONOCYTES PERCENT AUTO 9.5 % (0.0-8.0); NEUTROPHILS ABSOLUTE AUTO 5.6 K/mm3 (1.8-7.7); NEUTROPHILS PERCENT AUTO 64.8 % (41.0-71.0); PLATELET COUNT,PLT 266 K/mm3 (150-400); RED BLOOD CELL COUNT 4.52 M/mm3 (4.52-5.90); WHITE BLOOD CELL COUNT,WBC 8.67 K/mm3 (3.9-11.3)
[2024-03-27 05:02] LABS: A/G RATIO 0.8 (1-2); ALBUMIN 3.2 g/dl (3.4-5.0); ANION GAP 13.2 (5-15); BILIRUBIN TOTAL 0.6 mg/dL (0.2-1.0); CALCIUM 8.5 mg/dL (8.5-10.1); CREATININE 1.3 mg/dL (0.7-1.3); EST CRCL DRUG DOSING (CG) 37.43 mL/min; MAGNESIUM 2.1 mg/dL (1.8-2.4); POTASSIUM,K 4.2 mEq/L (3.5-5.1); PROTEIN TOTAL,TP 7.1 g/dl (6.4-8.2)
[2024-03-27] MEDS: QUEtiapine 25 MG Tab PO SCH ×2 (14:48→20:53)
[2024-03-27] MEDS: Donepezil 10 MG Tab PO SCH (20:53)
[2024-03-27] MEDS ORDERED: Donepezil 10 MG Tab PO ONE (21:00)
[2024-03-28 05:02] LABS: BASOPHILS ABSOLUTE AUTO 0.1 K/mm3 (0.0-0.2); BASOPHILS PERCENT AUTO 0.6 % (0.0-1.0); EOSINOPHILS ABSOLUTE AUTO 0.3 K/mm3 (0.0-0.4); EOSINOPHILS PERCENT AUTO 3.3 % (0.0-6.0); HEMOGLOBIN 14.4 gm/dl (14.0-18.0); IMMATURE GRAN ABSOLUTE AUTO 0.05 K/mm3 (0.00-0.05); IMMATURE GRAN PERCENT AUTO 0.6 % (0.0-0.4); LYMPHOCYTES ABSOLUTE AUTO 1.9 K/mm3 (1.0-4.8); LYMPHOCYTES PERCENT AUTO 22.8 % (24.0-44.0); MEAN CORPUSCULAR HEMOGLOBIN 30.6 pg (28.0-32.0); MEAN CORPUSCULAR HGB CONC 33.5 g/dl (32.0-36.0); MEAN CORPUSCULAR VOLUME 91.5 fl (83.0-99.0); MEAN PLATELET VOLUME 9.2 fl (9.4-12.4); MONOCYTES ABSOLUTE AUTO 0.8 K/mm3 (0.0-0.8); MONOCYTES PERCENT AUTO 10.2 % (0.0-8.0); NEUTROPHILS ABSOLUTE AUTO 5.1 K/mm3 (1.8-7.7); NEUTROPHILS PERCENT AUTO 62.5 % (41.0-71.0); PLATELET COUNT,PLT 277 K/mm3 (150-400); WHITE BLOOD CELL COUNT,WBC 8.23 K/mm3 (3.9-11.3)
[2024-03-28 05:45] LABS: A/G RATIO 0.8 (1-2); ALBUMIN 3.2 g/dl (3.4-5.0); ANION GAP 13.3 (5-15); BILIRUBIN TOTAL 0.4 mg/dL (0.2-1.0); BUN/CREATININE RATIO 10.8 (14-18); CALCIUM 8.7 mg/dL (8.5-10.1); CREATININE 1.3 mg/dL (0.7-1.3); EST CRCL DRUG DOSING (CG) 37.43 mL/min; MAGNESIUM 2.1 mg/dL (1.8-2.4); POTASSIUM,K 4.3 mEq/L (3.5-5.1); PROTEIN TOTAL,TP 7.2 g/dl (6.4-8.2)
[2024-03-28] MEDS: Cholecalciferol (Vitamin D3) 25 MCG Tab PO SCH (08:21)
[2024-03-28] MEDS: Aspirin 81 MG Tab.EC PO SCH (08:21)
[2024-03-28] MEDS: Polyethylene Glycol 3350 Powder 17 GM Packet PO PRN (10:29)
[2024-03-28 13:10] VITALS: BP 140/85; PULSE 87
== END 2024-03-28 13:13 | disposition other institution (70) | DRG 922 ==
LOC: JD.ED 08:08 → JD.ICU 11:56
PROVIDERS: ADMIT Internal Medicine; ATTEND Family Medicine
PROC: 0HQ3XZZ Repair Left Ear Skin, External Approach (ICD-10-PCS; principal; 2024-03-25)
PROC: 5A09357 Assistance with Respiratory Ventilation, Less than 24 Consecutive Hours, Continuous Positive Airway Pressure (ICD-10-PCS; 2024-03-25)
DX: T68.XXXA Hypothermia, initial encounter (principal); J96.01 Acute respiratory failure with hypoxia; N17.9 Acute kidney failure, unspecified; E87.20 Acidosis, unspecified; J98.11 Atelectasis; Z66 Do not resuscitate; I25.10 Atherosclerotic heart disease of native coronary artery without angina pectoris; I10 Essential (primary) hypertension; X31.XXXA Exposure to excessive natural cold, initial encounter; G47.30 Sleep apnea, unspecified; E11.9 Type 2 diabetes mellitus without complications; M19.90 Unspecified osteoarthritis, unspecified site; E66.9 Obesity, unspecified; H26.9 Unspecified cataract; H91.90 Unspecified hearing loss, unspecified ear; E78.00 Pure hypercholesterolemia, unspecified; Z96.652 Presence of left artificial knee joint; F15.90 Other stimulant use, unspecified, uncomplicated; W19.XXXA Unspecified fall, initial encounter; S01.312A Laceration without foreign body of left ear, initial encounter; F03.C0 Unspecified dementia, severe, without behavioral disturbance, psychotic disturbance, mood disturbance, and anxiety; T75.89XA Other specified effects of external causes, initial encounter; D72.829 Elevated white blood cell count, unspecified; E83.42 Hypomagnesemia; Z95.810 Presence of automatic (implantable) cardiac defibrillator; Z99.81 Dependence on supplemental oxygen; Z79.02 Long term (current) use of antithrombotics/antiplatelets; Z79.899 Other long term (current) drug therapy; Z87.01 Personal history of pneumonia (recurrent); Z68.31 Body mass index [BMI] 31.0-31.9, adult; Z98.49 Cataract extraction status, unspecified eye; Z90.49 Acquired absence of other specified parts of digestive tract
CPT/HCPCS: 12011; 36415; 70450; 70450-26; 71045; 71045-26; 72125; 72125-26; 80048; 80053; 81003; 82550; 82803; 82947; 83605; 83690; 83735; 83880; 85025; 85610; 85730; 93005; 93010; 97110-GP; 97112-GP; 97161-GP; 97530-GP; 99223; 99232; 99239; 99285; A9270-GY; J1644; J1815; J3475; J3490; J7030

== ENCOUNTER 2024-06-17 08:48 | Emergency (ER) | payer MEDICARE, BC ==
[2024-06-17 09:59] LABS: BASOPHILS ABSOLUTE AUTO 0.1 K/mm3 (0.0-0.2); BASOPHILS PERCENT AUTO 0.6 % (0.0-1.0); EOSINOPHILS ABSOLUTE AUTO 0.1 K/mm3 (0.0-0.4); EOSINOPHILS PERCENT AUTO 1.3 % (0.0-6.0); HEMATOCRIT 41.6 % (42.0-52.0); HEMOGLOBIN 13.4 gm/dl (14.0-18.0); IMMATURE GRAN ABSOLUTE AUTO 0.11 K/mm3 (0.00-0.05); IMMATURE GRAN PERCENT AUTO 1.2 % (0.0-0.4); LYMPHOCYTES PERCENT AUTO 20.7 % (24.0-44.0); MEAN CORPUSCULAR HEMOGLOBIN 29.6 pg (28.0-32.0); MEAN CORPUSCULAR HGB CONC 32.2 g/dl (32.0-36.0); MEAN CORPUSCULAR VOLUME 91.8 fl (83.0-99.0); MEAN PLATELET VOLUME 8.6 fl (9.4-12.4); MONOCYTES ABSOLUTE AUTO 0.7 K/mm3 (0.0-0.8); MONOCYTES PERCENT AUTO 7.5 % (0.0-8.0); NEUTROPHILS ABSOLUTE AUTO 6.5 K/mm3 (1.8-7.7); NEUTROPHILS PERCENT AUTO 68.7 % (41.0-71.0); PLATELET COUNT,PLT 315 K/mm3 (150-400); RED BLOOD CELL COUNT 4.53 M/mm3 (4.52-5.90); WHITE BLOOD CELL COUNT,WBC 9.49 K/mm3 (3.9-11.3)
[2024-06-17] MEDS: Diphtheria,Pertussis(Acell),Tetanus Vaccine 0.5 ML Syringe IM ONE (10:00)
[2024-06-17 10:22] LABS: A/G RATIO 0.8 (1-2); ALBUMIN 3.1 g/dl (3.4-5.0); ANION GAP 9.5 (5-15); BILIRUBIN TOTAL 0.5 mg/dL (0.2-1.0); CALCIUM 8.6 mg/dL (8.5-10.1); CREATININE 1.2 mg/dL (0.7-1.3); EST CRCL DRUG DOSING (CG) 40.55 mL/min; POTASSIUM,K 4.5 mEq/L (3.5-5.1); PROTEIN TOTAL,TP 7.2 g/dl (6.4-8.2)
[2024-06-17 13:13] VITALS: BP 142/80; PULSE 71
== END 2024-06-17 13:12 | disposition home or self-care (01) ==
LOC: JD.ED 08:48
DX: S05.12XA Contusion of eyeball and orbital tissues, left eye, initial encounter (principal); Z79.899 Other long term (current) drug therapy; Z79.82 Long term (current) use of aspirin; E11.9 Type 2 diabetes mellitus without complications; E66.9 Obesity, unspecified; Z90.49 Acquired absence of other specified parts of digestive tract; W19.XXXA Unspecified fall, initial encounter
CPT/HCPCS: 36415; 70450; 70450-26; 72125; 72125-26; 80053; 85025; 90471; 90715; 99283; 99284-25

== ENCOUNTER 2024-11-26 15:57 | Emergency (ER) | payer MEDICARE, BC ==
[2024-11-26 16:52] LABS: BASOPHILS ABSOLUTE AUTO 0.1 K/mm3 (0.0-0.2); BASOPHILS PERCENT AUTO 0.5 % (0.0-1.0); EOSINOPHILS ABSOLUTE AUTO 0.1 K/mm3 (0.0-0.4); EOSINOPHILS PERCENT AUTO 0.5 % (0.0-6.0); IMMATURE GRAN ABSOLUTE AUTO 0.12 K/mm3 (0.00-0.05); IMMATURE GRAN PERCENT AUTO 0.9 % (0.0-0.4); LYMPHOCYTES ABSOLUTE AUTO 1.6 K/mm3 (1.0-4.8); LYMPHOCYTES PERCENT AUTO 12.6 % (24.0-44.0); MEAN PLATELET VOLUME 8.7 fl (9.4-12.4); MONOCYTES ABSOLUTE AUTO 1.1 K/mm3 (0.0-0.8); MONOCYTES PERCENT AUTO 8.3 % (0.0-8.0); NEUTROPHILS ABSOLUTE AUTO 10.0 K/mm3 (1.8-7.7); NEUTROPHILS PERCENT AUTO 77.2 % (41.0-71.0); NRBC ABSOLUTE 0.00 (0.00-0.02); NRBC PERCENT 0.0 % (0.0-0.2); PLATELET COUNT,PLT 300 K/mm3 (150-400); RED BLOOD CELL COUNT 4.82 M/mm3 (4.52-5.90); WHITE BLOOD CELL COUNT,WBC 12.90 K/mm3 (3.9-11.3)
[2024-11-26 17:14] LABS: A/G RATIO 0.7 (1-2); ALANINE AMINOTRANSFERASE,ALT 33.0 U/L (16-63); ASPARTATE AMNIOTRANSFERASE,AST 29.0 U/L (15-37); BILIRUBIN TOTAL 0.5 mg/dL (0.2-1.0); BLOOD UREA NITROGEN,BUN 19.0 mg/dL (7-18); CARBON DIOXIDE,CO2 26.0 mEq/L (21-32); CHLORIDE,CL 103.0 mEq/L (98-107); CREATININE 1.5 mg/dL (0.7-1.3); EST CRCL DRUG DOSING (CG) 38.08 mL/min; ESTIMATED GFR 45.0 mL/min (>60); GLUCOSE RANDOM 141.0 mg/dL (70-99); POTASSIUM,K 4.6 mEq/L (3.5-5.1); PROTEIN TOTAL,TP 7.8 g/dl (6.4-8.2); SODIUM,NA 137.0 mEq/L (136-145)
[2024-11-26 17:17] LABS: APPEARANCE,URINE CLEAR (Clear); GLUCOSE,URINE 2+ (Negative); OCCULT BLOOD,URINE NEGATIVE (Negative)
[2024-11-26 17:24] LABS: EPITHELIAL CELLS,URINE 0-5 /hpf (0-5)
[2024-11-26 18:56] VITALS: BP 115/68; PULSE 76
== END 2024-11-26 18:22 | disposition other institution (70) ==
LOC: JD.ED 15:57
DX: R10.9 Unspecified abdominal pain (principal); R06.02 Shortness of breath; E66.9 Obesity, unspecified; E11.9 Type 2 diabetes mellitus without complications; Z79.82 Long term (current) use of aspirin; Z79.84 Long term (current) use of oral hypoglycemic drugs; Z79.899 Other long term (current) drug therapy; Z90.49 Acquired absence of other specified parts of digestive tract; Z68.28 Body mass index [BMI] 28.0-28.9, adult
CPT/HCPCS: 36415; 71046; 71046-26; 80053; 81001; 85025; 86140; 99282; 99284

== ENCOUNTER 2024-12-07 01:17 | Emergency (ER) | payer MEDICARE, BC ==
[2024-12-07 01:37] LABS: BASOPHILS ABSOLUTE AUTO 0.1 K/mm3 (0.0-0.2); BASOPHILS PERCENT AUTO 0.6 % (0.0-1.0); EOSINOPHILS ABSOLUTE AUTO 0.1 K/mm3 (0.0-0.4); EOSINOPHILS PERCENT AUTO 1.2 % (0.0-6.0); IMMATURE GRAN ABSOLUTE AUTO 0.11 K/mm3 (0.00-0.05); IMMATURE GRAN PERCENT AUTO 1.1 % (0.0-0.4); LYMPHOCYTES ABSOLUTE AUTO 1.7 K/mm3 (1.0-4.8); LYMPHOCYTES PERCENT AUTO 17.5 % (24.0-44.0); MEAN PLATELET VOLUME 8.5 fl (9.4-12.4); MONOCYTES ABSOLUTE AUTO 0.8 K/mm3 (0.0-0.8); MONOCYTES PERCENT AUTO 7.7 % (0.0-8.0); NEUTROPHILS ABSOLUTE AUTO 7.1 K/mm3 (1.8-7.7); NEUTROPHILS PERCENT AUTO 71.9 % (41.0-71.0); NRBC ABSOLUTE 0.00 (0.00-0.02); NRBC PERCENT 0.0 % (0.0-0.2); PLATELET COUNT,PLT 301 K/mm3 (150-400); RED BLOOD CELL COUNT 4.68 M/mm3 (4.52-5.90); WHITE BLOOD CELL COUNT,WBC 9.82 K/mm3 (3.9-11.3)
[2024-12-07 01:59] LABS: A/G RATIO 0.7 (1-2); ALANINE AMINOTRANSFERASE,ALT 32 U/L (16-63); ASPARTATE AMNIOTRANSFERASE,AST 27 U/L (15-37); BILIRUBIN TOTAL 0.5 mg/dL (0.2-1.0); BLOOD UREA NITROGEN,BUN 18 mg/dL (7-18); CARBON DIOXIDE,CO2 27 mEq/L (21-32); CHLORIDE,CL 102 mEq/L (98-107); CREATININE 1.4 mg/dL (0.7-1.3); ESTIMATED GFR 49 mL/min (>60); GLUCOSE RANDOM 142 mg/dL (70-99); POTASSIUM,K 4.1 mEq/L (3.5-5.1); PROTEIN TOTAL,TP 7.2 g/dl (6.4-8.2); SODIUM,NA 138 mEq/L (136-145)
[2024-12-07 04:03] VITALS: PULSE 65
[2024-12-07 05:38] VITALS: BP 121/60
== END 2024-12-07 04:40 | disposition home or self-care (01) ==
LOC: JD.ED 01:17
DX: S51.012A Laceration without foreign body of left elbow, initial encounter (principal); S01.81XA Laceration without foreign body of other part of head, initial encounter; I10 Essential (primary) hypertension; I25.10 Atherosclerotic heart disease of native coronary artery without angina pectoris; E78.00 Pure hypercholesterolemia, unspecified; E66.9 Obesity, unspecified; E11.9 Type 2 diabetes mellitus without complications; Z79.899 Other long term (current) drug therapy; Z90.49 Acquired absence of other specified parts of digestive tract; W06.XXXA Fall from bed, initial encounter; W22.8XXA Striking against or struck by other objects, initial encounter
CPT/HCPCS: 12002; 36415; 70450; 72125; 72131; 80053; 85025; 99284; J2003; 12001; 99283